=== PATIENT | female | born 1940 | race Caucasian/White ===

== ENCOUNTER 2025-02-20 19:34 | Inpatient (IN) | payer MEDICARE, MEDICAID ==
[~2025-02-20] VITALS: Ht 167.6 cm; Wt 112.0 kg
[2025-02-20 19:10] VITALS: BP 151/58; PULSE 63; RESP 20; TEMP 36.8
[~2025-02-20 19:34] MED LIST: ALBU25PO2 MC; ALLO100T MT; AMLO10TA80 PO; APIX5TAB MT; ASPI-1079 PO; CALC-1017 PO; FURO-151 PO; IBUP-2030 PO; LEVO500T2 PO; LISI20TA31 MT; MECL-299 PO; OMEP20TA23 PO; [UNRECOGNIZED DRUG - REMARK]
[2025-02-20 20:00] VITALS: BP 151/58; PULSE 63; RESP 63; TEMP 36.7; O2SAT 96
[2025-02-20] MEDS ORDERED: GUAIFENESIN 200MG/10ML SUGAR FREE UDC PO PRN (21:45)
[2025-02-20] MEDS ORDERED: ONDANSETRON HCL 4MG/2ML INJ IV PRN (21:45)
[2025-02-20] MEDS ORDERED: ACETAMINOPHEN 325MG TABLET PO PRN (21:45)
[2025-02-20] MEDS ORDERED: DOCUSATE SODIUM 100MG CAPSULE PO PRN (21:45)
[2025-02-20] MEDS ORDERED: MAGNESIUM/ALUMINUM HYDROXIDE/SIMETHICONE 30ML UDC PO PRN (21:45)
[2025-02-20] MEDS ORDERED: IPRATROPIUM/ALBUTEROL 0.5-3(2.5)MG/3ML NEB HHN PRN (22:09)
[2025-02-21 06:33] LABS: DIFFERENTIAL COMMENT 0; HEMATOCRIT. 24.9 % (36.0-48.0); LYMPHOCYTES % 29.9 % (20.0-50.0); MEAN CORPUSCULAR HEMOGLOBIN 30.1 pg (28.0-32.0); MEAN CORPUSCULAR HGB CONC 32.1 g/dL (31.0-37.0); MEAN CORPUSCULAR VOLUME 93.8 fL (81.0-99.0); MEAN PLATELET VOLUME 9.4 fl (7.4-10.4); MONOCYTES % 11.5 % (2.0-8.0); NEUTROPHILS % 50.6 % (40.0-76.0); PLATELET 217 x1000/uL (130-400); RED BLOOD CELL COUNT 2.65 mill/uL (4.2-5.4); RED CELL DISTRIBUTION WIDTH 19.2 % (11.6-14.6); WHITE BLOOD COUNT 6.3 x1000/uL (4.5-11.0)
[2025-02-21 06:47] LABS: CHLORIDE 115 mEq/L (98-107); POTASSIUM 4.1 mEq/L (3.5-5.1); SODIUM 144 mEq/L (136-145)
[2025-02-21 06:48] LABS: CALCIUM 8.2 mg/dL (8.7-10.4); CARBON DIOXIDE 20 mEq/L (21-32)
[2025-02-21 06:53] LABS: CREATININE 1.2 mg/dL (0.6-1.0); GLUCOSE 77 mg/dL (70-105); UREA NITROGEN BLOOD 15 mg/dL (9-23)
[2025-02-21 06:54] LABS: ALANINE AMINOTRANSFERASE < 7 IU/L (10-49)
[2025-02-21 06:55] LABS: ALBUMIN 2.5 g/dL (3.2-4.8); ASPARTATE AMINOTRANSFERASE 22 IU/L (<34); BILIRUBIN TOTAL 0.5 mg/dL (0.1-1.0); PROTEIN TOTAL 6.2 g/dL (6.0-8.3)
[2025-02-21 06:59] LABS: PREALBUMIN < 5.0 mg/dl (10.0-40.0)
[2025-02-21 08:00] VITALS: BP 104/59; PULSE 82; RESP 18; TEMP 36.5; O2SAT 100
[2025-02-21] MEDS ORDERED: DEXTROSE 50% WATER 50ML SYRINGE IV PRN (09:30)
[2025-02-21] MEDS: APIXABAN 5 MG TABLET PO SCH (10:28)
[2025-02-21] MEDS: PANTOPRAZOLE SODIUM 40 MG/VIAL IV SCH (10:28)
[2025-02-21] MEDS: DEXT 5%/0.9% NACL 1,000 ML IV SCH (10:29)
[2025-02-21] MEDS: BLOOD SUGAR DIAGNOSTIC STRIP TEST SCH (11:15)
[2025-02-21] MEDS ORDERED: APIXABAN 5 MG TABLET PO SCH (13:00)
[2025-02-21] MEDS: INSULIN LISPRO 100 UNITS/ML SUBCUT SCH (13:00)
[2025-02-21 20:00] VITALS: BP 123/58; PULSE 61; RESP 18; TEMP 36.8; O2SAT 99
[2025-02-21] MEDS: ATORVASTATIN CALCIUM 20MG TABLET PO SCH (21:57)
[2025-02-22 08:00] VITALS: BP 145/57; PULSE 75; RESP 18; TEMP 36.7; O2SAT 97
[2025-02-22 08:19] LABS: BASOPHILS % 1.1 % (0.0-2.0); EOSINOPHILS % 7.2 % (0.0-5.0); HEMATOCRIT. 24.1 % (36.0-48.0); HEMOGLOBIN. 7.9 g/dL (12.0-16.0); LYMPHOCYTES % 23.4 % (20.0-50.0); MEAN CORPUSCULAR HEMOGLOBIN 30.9 pg (28.0-32.0); MEAN CORPUSCULAR HGB CONC 32.9 g/dL (31.0-37.0); MEAN CORPUSCULAR VOLUME 94.2 fL (81.0-99.0); MEAN PLATELET VOLUME 9.3 fl (7.4-10.4); MONOCYTES % 10.4 % (2.0-8.0); NEUTROPHILS % 57.9 % (40.0-76.0); PLATELET 216 x1000/uL (130-400); RED BLOOD CELL COUNT 2.56 mill/uL (4.2-5.4); RED CELL DISTRIBUTION WIDTH 18.8 % (11.6-14.6); WHITE BLOOD COUNT 6.3 x1000/uL (4.5-11.0)
[2025-02-22 08:24] LABS: POTASSIUM 4.4 mEq/L (3.5-5.1)
[2025-02-22 11:48] LABS: CALCIUM 8.9 mg/dL (8.7-10.4)
[2025-02-22 20:03] VITALS: BP 154/59; PULSE 61; RESP 18; TEMP 36.2; O2SAT 98
[2025-02-23 07:22] LABS: BASOPHILS % 1.2 % (0.0-2.0); DIFFERENTIAL COMMENT 0; EOSINOPHILS % 7.7 % (0.0-5.0); HEMATOCRIT. 24.8 % (36.0-48.0); LYMPHOCYTES % 27.8 % (20.0-50.0); MEAN CORPUSCULAR HEMOGLOBIN 30.6 pg (28.0-32.0); MEAN CORPUSCULAR HGB CONC 32.4 g/dL (31.0-37.0); MEAN CORPUSCULAR VOLUME 94.6 fL (81.0-99.0); MEAN PLATELET VOLUME 9.2 fl (7.4-10.4); MONOCYTES % 12.8 % (2.0-8.0); NEUTROPHILS % 50.5 % (40.0-76.0); PLATELET 202 x1000/uL (130-400); RED BLOOD CELL COUNT 2.62 mill/uL (4.2-5.4); RED CELL DISTRIBUTION WIDTH 18.5 % (11.6-14.6); WHITE BLOOD COUNT 5.1 x1000/uL (4.5-11.0)
[2025-02-23 07:25] LABS: POTASSIUM 4.2 mEq/L (3.5-5.1)
[2025-02-23 07:27] LABS: CALCIUM 8.8 mg/dL (8.7-10.4)
[2025-02-23 07:31] LABS: CREATININE 1.2 mg/dL (0.6-1.0)
[2025-02-23 08:00] VITALS: BP 122/44; PULSE 60; RESP 18; TEMP 36.4; O2SAT 100
[2025-02-23] MEDS: ERGOCALCIFEROL 50000UNITS CAPSULE PO SCH (12:00)
[2025-02-23 19:56] VITALS: BP 136/43; PULSE 61; RESP 17; TEMP 36.2; O2SAT 97
[2025-02-24 08:00] VITALS: BP 112/50; PULSE 67; RESP 18; TEMP 35.9; O2SAT 96
[2025-02-24 09:26] LABS: EOSINOPHILS % 5.6 % (0.0-5.0); HEMATOCRIT. 24.5 % (36.0-48.0); HEMOGLOBIN. 7.7 g/dL (12.0-16.0); LYMPHOCYTES % 28.2 % (20.0-50.0); MEAN CORPUSCULAR HEMOGLOBIN 30.2 pg (28.0-32.0); MEAN CORPUSCULAR HGB CONC 31.3 g/dL (31.0-37.0); MEAN CORPUSCULAR VOLUME 96.4 fL (81.0-99.0); MEAN PLATELET VOLUME 9.5 fl (7.4-10.4); MONOCYTES % 14.1 % (2.0-8.0); NEUTROPHILS % 51.1 % (40.0-76.0); PLATELET 217 x1000/uL (130-400); RED BLOOD CELL COUNT 2.54 mill/uL (4.2-5.4); RED CELL DISTRIBUTION WIDTH 19.2 % (11.6-14.6); WHITE BLOOD COUNT 6.4 x1000/uL (4.5-11.0)
[2025-02-24 09:41] LABS: CALCIUM 8.7 mg/dL (8.7-10.4); POTASSIUM 4.9 mEq/L (3.5-5.1)
[2025-02-24 09:47] LABS: CREATININE 1.1 mg/dL (0.6-1.0)
[2025-02-24] MEDS ORDERED: MECL-299 MT (13:44)
[2025-02-24] MEDS ORDERED: POTA-185 MT (13:50)
[2025-02-24] MEDS ORDERED: PANT40TA51 MT (13:51)
[2025-02-24 19:44] VITALS: BP 134/89; PULSE 76; RESP 20; TEMP 36.4; O2SAT 98
[2025-02-25] MEDS: ACETAMINOPHEN 325MG TABLET PO PRN (08:10)
[2025-02-25 08:30] VITALS: BP 148/46; PULSE 71; RESP 18; TEMP 36.2; O2SAT 98
[2025-02-25 19:58] VITALS: BP 134/59; PULSE 62; RESP 20; TEMP 36.2; O2SAT 99
[2025-02-26 08:00] VITALS: BP 126/37; PULSE 87; RESP 17; TEMP 36.4; O2SAT 97
[2025-02-26 19:49] VITALS: BP 105/66; PULSE 59; RESP 18; TEMP 36.1; O2SAT 97
[2025-02-27 07:35] LABS: MEAN CORPUSCULAR HEMOGLOBIN 30.3 pg (28.0-32.0); MEAN CORPUSCULAR HGB CONC 31.9 g/dL (31.0-37.0); MEAN CORPUSCULAR VOLUME 94.9 fL (81.0-99.0); MEAN PLATELET VOLUME 9.7 fl (7.4-10.4); PLATELET 179 x1000/uL (130-400); RED BLOOD CELL COUNT 2.21 mill/uL (4.2-5.4); RED CELL DISTRIBUTION WIDTH 20.2 % (11.6-14.6)
[2025-02-27 07:50] LABS: POTASSIUM 4.5 mEq/L (3.5-5.1)
[2025-02-27 07:51] LABS: CALCIUM 8.7 mg/dL (8.7-10.4)
[2025-02-27 07:56] LABS: CREATININE 1.2 mg/dL (0.6-1.0)
[2025-02-27 08:00] VITALS: BP 149/46; PULSE 74; RESP 20; TEMP 36.8; O2SAT 97
[2025-02-27 08:05] LABS: DIFFERENTIAL COMMENT 1; HEMOGLOBIN. 6.7 g/dL (12.0-16.0)
[2025-02-27 10:48] LABS: HEMATOCRIT 21.9 % (36.0-48.0)
[2025-02-27 10:59] LABS: HEMOGLOBIN 6.8 g/dL (12.0-16.0)
[2025-02-27 18:22] LABS: ANISOCYTOSIS 1+; NUCLEATED RED BLOOD CELLS 4 /100 WBC; PLATELET ESTIMATE NORMAL
[2025-02-27 20:00] VITALS: BP 124/32; PULSE 70; RESP 19; TEMP 36.5; O2SAT 97
[2025-02-28] VITALS (10 sets, daily range): BP systolic 105–139; BP diastolic 44–56; PULSE 63–81; RESP 18–20; TEMP 36.22512–37.1; O2SAT 96–100
[2025-02-28 07:41] LABS: HEMATOCRIT. 24.7 % (36.0-48.0); HEMOGLOBIN. 7.9 g/dL (12.0-16.0); MEAN CORPUSCULAR HEMOGLOBIN 29.9 pg (28.0-32.0); MEAN CORPUSCULAR HGB CONC 31.9 g/dL (31.0-37.0); MEAN CORPUSCULAR VOLUME 93.6 fL (81.0-99.0); MEAN PLATELET VOLUME 9.3 fl (7.4-10.4); PLATELET 172 x1000/uL (130-400); RED BLOOD CELL COUNT 2.64 mill/uL (4.2-5.4); RED CELL DISTRIBUTION WIDTH 20.1 % (11.6-14.6); WHITE BLOOD COUNT 4.5 x1000/uL (4.5-11.0)
[2025-02-28 07:53] LABS: DIFFERENTIAL COMMENT 1
[2025-02-28] MEDS: ACETAMINOPHEN WITH CODEINE 300/30MG TABLET PO NR (11:02)
[2025-02-28 12:36] LABS: TROPONIN I HIGH SENSITIVITY 18 ng/L (3.0-34)
[2025-02-28 16:42] LABS: ANISOCYTOSIS 2+; HYPOCHROMASIA 1+; PLATELET ESTIMATE NORMAL; TARGET CELLS 1+
[2025-03-01] MEDS: DEXT 5%/0.45% NACL 1000ML 1,000 ML IV SCH (00:47)
[2025-03-01 03:14] LABS: HEMOGLOBIN. 8.3 g/dL (12.0-16.0); MEAN CORPUSCULAR HEMOGLOBIN 29.6 pg (28.0-32.0); MEAN CORPUSCULAR HGB CONC 31.8 g/dL (31.0-37.0); MEAN CORPUSCULAR VOLUME 93.2 fL (81.0-99.0); MEAN PLATELET VOLUME 9.6 fl (7.4-10.4); PLATELET 186 x1000/uL (130-400); RED BLOOD CELL COUNT 2.79 mill/uL (4.2-5.4); RED CELL DISTRIBUTION WIDTH 20.7 % (11.6-14.6); WHITE BLOOD COUNT 6.1 x1000/uL (4.5-11.0)
[2025-03-01 03:20] LABS: INR 1.4; PROTHROMBIN TIME 14.2 sec (9.6-11.0)
[2025-03-01 03:21] LABS: DIFFERENTIAL COMMENT 1
[2025-03-01 03:31] LABS: CHLORIDE 114 mEq/L (98-107); POTASSIUM 4.6 mEq/L (3.5-5.1); SODIUM 142 mEq/L (136-145)
[2025-03-01 03:32] LABS: CALCIUM 8.9 mg/dL (8.7-10.4); CARBON DIOXIDE 20 mEq/L (21-32)
[2025-03-01 03:37] LABS: CREATININE 1.2 mg/dL (0.6-1.0); GLUCOSE 89 mg/dL (70-105); UREA NITROGEN BLOOD 15 mg/dL (9-23)
[2025-03-01 03:39] LABS: PHOSPHORUS 3.1 mg/dL (2.5-4.9)
[2025-03-01 05:41] LABS: NUCLEATED RED BLOOD CELLS 2 /100 WBC; PLATELET ESTIMATE NORMAL
[2025-03-01 05:42] LABS: ANISOCYTOSIS 2+
[2025-03-01 08:00] VITALS: BP 148/59; PULSE 77; RESP 18; TEMP 36.3; O2SAT 99
[2025-03-01] MEDS ORDERED: ONDANSETRON HCL 4MG/2ML INJ IV PRN (10:30)
[2025-03-01] MEDS ORDERED: HYDRALAZINE 20MG/ML VIAL IV PRN (10:30)
[2025-03-01] MEDS ORDERED: GLYCOPYRROLATE 0.2 MG/ML 2ML VIAL IV PRN (10:30)
[2025-03-01] MEDS: HYDROMORPHONE HCL/PF 1MG/ML INJ IV PRN (13:13)
[2025-03-01 20:00] VITALS: BP 134/56; PULSE 80; RESP 20; TEMP 36.1; O2SAT 100
[2025-03-02] MEDS: PANTOPRAZOLE 40MG DR TABLET PO SCH (06:43)
[2025-03-02 08:00] VITALS: BP 142/58; PULSE 67; RESP 18; TEMP 36; O2SAT 100
[2025-03-02] MEDS ORDERED: LACTULOSE 20G/30ML UDC PO PRN (14:00)
[2025-03-02 16:29] LABS: BASOPHILS % 0.4 % (0.0-2.0); EOSINOPHILS % 0.1 % (0.0-5.0); HEMATOCRIT. 25.9 % (36.0-48.0); HEMOGLOBIN. 7.9 g/dL (12.0-16.0); LYMPHOCYTES % 10.9 % (20.0-50.0); MEAN CORPUSCULAR HEMOGLOBIN 29.8 pg (28.0-32.0); MEAN CORPUSCULAR HGB CONC 30.4 g/dL (31.0-37.0); MEAN CORPUSCULAR VOLUME 97.8 fL (81.0-99.0); MONOCYTES % 13.1 % (2.0-8.0); NEUTROPHILS % 75.5 % (40.0-76.0); PLATELET 209 x1000/uL (130-400); RED BLOOD CELL COUNT 2.65 mill/uL (4.2-5.4); RED CELL DISTRIBUTION WIDTH 20.9 % (11.6-14.6)
[2025-03-02 16:34] LABS: DIFFERENTIAL COMMENT 1
[2025-03-02 20:00] VITALS: BP 148/67; PULSE 64; RESP 18; TEMP 36.4; O2SAT 98
[2025-03-03 08:00] VITALS: BP 127/74; PULSE 59; RESP 19; TEMP 35.8; O2SAT 99
[2025-03-03] MEDS: APIXABAN 2.5 MG TABLET PO SCH (11:07)
[2025-03-03 12:31] LABS: BASOPHILS % 0.2 % (0.0-2.0); EOSINOPHILS % 0.3 % (0.0-5.0); HEMATOCRIT. 24.1 % (36.0-48.0); HEMOGLOBIN. 7.8 g/dL (12.0-16.0); LYMPHOCYTES % 14.2 % (20.0-50.0); MEAN CORPUSCULAR HEMOGLOBIN 30.8 pg (28.0-32.0); MEAN CORPUSCULAR HGB CONC 32.2 g/dL (31.0-37.0); MEAN CORPUSCULAR VOLUME 95.4 fL (81.0-99.0); MEAN PLATELET VOLUME 10.4 fl (7.4-10.4); MONOCYTES % 14.8 % (2.0-8.0); NEUTROPHILS % 70.5 % (40.0-76.0); PLATELET 195 x1000/uL (130-400); RED BLOOD CELL COUNT 2.52 mill/uL (4.2-5.4); RED CELL DISTRIBUTION WIDTH 21.1 % (11.6-14.6); WHITE BLOOD COUNT 8.2 x1000/uL (4.5-11.0)
[2025-03-03 12:39] LABS: DIFFERENTIAL COMMENT 1
[2025-03-03 20:00] VITALS: BP 148/72; PULSE 89; RESP 20; TEMP 36.4; O2SAT 99
[2025-03-04 07:30] LABS: BASOPHILS % 0.1 % (0.0-2.0); EOSINOPHILS % 0.9 % (0.0-5.0); HEMOGLOBIN. 8.1 g/dL (12.0-16.0); LYMPHOCYTES % 9.2 % (20.0-50.0); MEAN CORPUSCULAR HEMOGLOBIN 30.1 pg (28.0-32.0); MEAN CORPUSCULAR HGB CONC 31.2 g/dL (31.0-37.0); MEAN CORPUSCULAR VOLUME 96.5 fL (81.0-99.0); MEAN PLATELET VOLUME 9.8 fl (7.4-10.4); MONOCYTES % 8.2 % (2.0-8.0); NEUTROPHILS % 81.6 % (40.0-76.0); PLATELET 181 x1000/uL (130-400); RED BLOOD CELL COUNT 2.69 mill/uL (4.2-5.4); RED CELL DISTRIBUTION WIDTH 21.4 % (11.6-14.6)
[2025-03-04 07:45] LABS: DIFFERENTIAL COMMENT 1
[2025-03-04 08:00] VITALS: BP_SYST 126; BP_SYST 133; BP_DIAS 82; PULSE 62; RESP 19; TEMP 36; O2SAT 98; O2SAT 99
[2025-03-04] MEDS ORDERED: APIX2.5T PO (10:03)
[2025-03-04] MEDS ORDERED: PANT40TA51 PO (10:03)
[2025-03-04] MEDS ORDERED: ATOR20TA PO (10:03)
[2025-03-04] MEDS ORDERED: LISI10TA26 MT (10:09)
== END 2025-03-04 13:00 | disposition home health service (06) | DRG 91 ==
PROVIDERS: ADMIT Physical Medicine & Rehabilitation Spinal Cord Injury Medicine; ATTEND Internal Medicine
DX: G72.81 Critical illness myopathy (principal); G93.41 Metabolic encephalopathy; J18.9 Pneumonia, unspecified organism; R57.1 Hypovolemic shock; K92.0 Hematemesis; E46 Unspecified protein-calorie malnutrition; I13.0 Hypertensive heart and chronic kidney disease with heart failure and stage 1 through stage 4 chronic kidney disease, or unspecified chronic kidney disease; J98.11 Atelectasis; N17.9 Acute kidney failure, unspecified; N39.0 Urinary tract infection, site not specified; R17 Unspecified jaundice; F03.93 Unspecified dementia, unspecified severity, with mood disturbance; J90 Pleural effusion, not elsewhere classified; G62.9 Polyneuropathy, unspecified; D64.9 Anemia, unspecified; E66.9 Obesity, unspecified; F32.A Depression, unspecified; I08.3 Combined rheumatic disorders of mitral, aortic and tricuspid valves; I48.91 Unspecified atrial fibrillation; I50.9 Heart failure, unspecified; K27.9 Peptic ulcer, site unspecified, unspecified as acute or chronic, without hemorrhage or perforation; K57.30 Diverticulosis of large intestine without perforation or abscess without bleeding; M75.01 Adhesive capsulitis of right shoulder; R26.9 Unspecified abnormalities of gait and mobility; E55.9 Vitamin D deficiency, unspecified; R53.81 Other malaise; R00.1 Bradycardia, unspecified; I95.9 Hypotension, unspecified; K44.9 Diaphragmatic hernia without obstruction or gangrene; N18.9 Chronic kidney disease, unspecified; Z79.01 Long term (current) use of anticoagulants; Z82.49 Family history of ischemic heart disease and other diseases of the circulatory system; Z68.37 Body mass index [BMI] 37.0-37.9, adult; Z87.11 Personal history of peptic ulcer disease; Z90.710 Acquired absence of both cervix and uterus; Z91.81 History of falling; Z95.0 Presence of cardiac pacemaker; Z79.899 Other long term (current) drug therapy
CPT/HCPCS: 36415; 80048; 80053; 82270; 82306; 82962; 83036; 83735; 84100; 84134; 84484; 85014; 85018; 85025; 86850; 86870; 86900; 86920; 88305; 88312; 88313; 92523; 92610; 93005; 97110; 97116; 97162; 97166; 97530; 97535; A4606; J1171; J1815; J2470; J7042; P9016